=== PATIENT | male | born 1960 | race Caucasian/White ===

== ENCOUNTER 2022-03-30 05:31 | Observation (INO) ==
--- NOTE | 2022-03-27 09:38 | Anesthesiology Consultation ---
Date of Service March 27, 2022 Assessment & Plan (1) Encounter for pre-operative examination: - COVID screening: Per python consultant on 03/27/2022: Travel screen negative, no known COVID-19 positive contacts or current COVID-19 related symptoms in past 2 weeks. To surgeon's discretion if preop COVID testing is needed. Chart Review Chart Review: Acceptable Risk for Surgery and Patient NOT seen in Pre Admission Testing History Surgery Operation Date: 03/30/22 07:30 Proposed Procedures p Robotic Laparoscopic Assisted Radical Prostatectomy, Possible Open, Possible Pelvic Lymph Node Dissection, Possible Suprapubic Tube Placement - Jose Guzmán, DO Height/Weight Height: 6 ft Weight: 102.058 kg Allergies Allergy/AdvReac Type Severity Reaction Status Date / Time No Known Allergies Allergy Verified 03/27/22 09:03 Medications Home Medications Medication Instructions Recorded Confirmed Last Taken bupropion HCl 150 mg 24 hr tablet, 150 mg PO QAM 03/27/22 03/27/22 Unknown extended release (Wellbutrin XL) losartan 100 mg tablet (Cozaar) 100 mg PO HS 03/27/22 03/27/22 Unknown pregabalin 200 mg capsule (Lyrica) 200 mg PO BID 03/27/22 03/27/22 Unknown sertraline 100 mg tablet 100 mg PO HS 03/27/22 03/27/22 Unknown Past Medical History Medical History (Updated 03/27/22 @ 09:35 by Trudy Chester PA-C) Anxiety COPD (chronic obstructive pulmonary disease) Depression Hypertension Prostate cancer Past Surgical History Surgical History (Updated 03/27/22 @ 09:10 by Lesley Rodarte) History of back surgery x2 Hx of appendectomy Hx of arthroscopic knee surgery rt. Hx of cervical spine surgery w/plate and screws; ROM "is pretty good" Hx of colonoscopy Hx of knee surgery rt. "twisted around and had to be repaired" Hx of tooth extraction Social History Smoking Status: Current every day smoker tobacco type: cigars Smoking cigarettes per day: 1-2 cigars per day Do You Dip or Chew Tobacco: Yes (1 can/3 days) Hx Alcohol Use: No Hx Substance Use: No substance use type: does not use Lab Results Anesthesia Preop Results Results Anesthesia Widget: WBC 9.61 K/ul (4.8-10.8) 03/07/22 Hgb 15.2 g/dl (14.0-18.0) 03/07/22 Hct 45.5 % (40.1-51.0) 03/07/22 Plt 309 K/uL (130-400) 03/07/22 Na 139 mmol/L (136-145) 03/07/22 K 4.3 mmol/L (3.5-5.1) 03/07/22 Cl 105 mmol/L (98-107) 03/07/22 CO2 28 mmol/L (21-32) 03/07/22 BUN 14 mg/dl (6-23) 03/07/22 Creat 0.77 mg/dl (0.6-1.4) 03/07/22 Glucose Level 107 mg/dl (70-99(Fasting)) H 03/07/22 Testing Electrocardiogram Date: 06/16/21 Sinus bradycardia, rate 59 bpm Chest X-Ray Date: 03/07/22 1. Elevated right hemidiaphragm with right basilar linear densities suggesting subsegmental atelectasis or scarring. 2. Otherwise, no acute process within the chest. Other Testing Bone scan 02/15/22 There is no scintigraphic evidence of bony metastatic disease CT abdomen and pelvis 01/12/22 No evidence of metastatic disease
[2022-03-30] MEDS ORDERED: LR 15ML/HR IV SCH (06:00)
[2022-03-30] MEDS ORDERED: LACTATED RINGER'S 1,000 ML IV SCH (06:00)
[2022-03-30] MEDS ORDERED: ceFAZolin 2000MG 2,000 MG/15 ML SYR IV SCH (06:00)
[2022-03-30] MEDS ORDERED: HEPARIN SOD 5,000 UNIT/0.5 ML VIAL SQ SCH (06:00)
[2022-03-30] MEDS ORDERED: DEXAMETHASONE SOD INJ 4 MG/ML VIAL ONE ×2 (06:58→07:55)
[2022-03-30] MEDS ORDERED: ROCURONIUM BROMIDE 10 MG/ML 5 ML VIAL IV ONE (06:58)
[2022-03-30] MEDS ORDERED: ONDANSETRON INJ 2 MG/ML 2 ML VIAL ONE (06:58)
[2022-03-30] MEDS ORDERED: PROPOFOL IV EMULSION 10 MG/ML 20 ML VIAL IV ONE (06:58)
[2022-03-30] MEDS ORDERED: LIDOCAINE 2% 2 ML VIAL/AMP(20MG/ML) INFIL ONE (06:58)
[2022-03-30] MEDS ORDERED: fentaNYL citrate 100 MCG/2 ML VIAL ONE ×2 (06:59→09:32)
[2022-03-30] MEDS ORDERED: MIDAZOLAM HCL 1 MG/ML 2ML VIAL ONE (06:59)
[2022-03-30] MEDS ORDERED: SUGAMMADEX SODIUM 200 MG/2 ML VIAL IV ONE (07:00)
--- NOTE | 2022-03-30 07:07 | History & Physical Bridge Note ---
Date of Service March 30, 2022 History & Physical Bridge Note I have examined the patient, reviewed the History & Physical and in the interval since the performance of the History & Physical I have noted the following changes of clinical significance: no changes noted
[2022-03-30] MEDS ORDERED: BUPIVACAINE 0.5 % 5 MG/1 ML MPF 30ML VIAL ONE (07:30)
[2022-03-30] MEDS ORDERED: ATROPINE SULFATE 0.1 MG/ML 10ML SYR IV PRN (07:34)
[2022-03-30] MEDS ORDERED: ONDANSETRON INJ 2 MG/ML 2 ML VIAL IV PRN ×2 (07:34→13:13)
[2022-03-30] MEDS ORDERED: NALOXONE HCL 0.4 MG/1 ML VIAL/CARP IV PRN (07:34)
[2022-03-30] MEDS ORDERED: LABETALOL HCL IV 5 MG/ML 20ML IV PRN (07:34)
[2022-03-30] MEDS ORDERED: ePHEDrine sulfate 50 MG/ML AMP IV PRN (07:34)
[2022-03-30] MEDS ORDERED: FLUMAZENIL 0.1 MG/1 ML 10 ML VIAL IV PRN (07:34)
[2022-03-30] MEDS ORDERED: PROMETHAZINE HCL 12.5 MG in SODIUM CHLORIDE 0.9% 50 ML IV PRN (07:34)
[2022-03-30] MEDS ORDERED: GLYCOPYRROLATE 0.2 MG/ML VIAL ONE (08:09)
[2022-03-30] MEDS ORDERED: FLOSEAL HEMOSTATIC MATRIX 10ML TOP ONE (09:39)
[2022-03-30] MEDS ORDERED: SURGICEL ABSORB HEMOSTAT 2IN X 14IN TOP ONE ×2 (09:47→10:21)
--- NOTE | 2022-03-30 11:02 | Operative Report ---
PG Post Operative Report Pre & Post Diagnosis Operation Date: 03/30/22 07:30 Pre-Op Diagnosis: Prostate Cancer Post-Op Diagnosis: Prostate Cancer I identified the patient and participated in the time-out.: Yes Procedure Operation Date: 03/30/22 07:30 Actual Procedures p Robotic Laparoscopic Assisted Radical Retropubic Prostatectomy, Pelvic Lymph Node Dissection, Reduction of left inguinal hernia, extensive lysis of adhesions. - Jose Guzmán, Surgeon Jose Guzmán, II, DO Performance Architect Elver VILLA Estimated Blood Loss 50 Findings Consistent with Post-Op Diagnosis Numerous adhesions of the colon and small bowel in the pelvis. Moderate fat containing Inguinal hernia on left with adhesion of sigmoid colon to area over the inguinal canal. Hernia was reduced and adhesions freed on left. Insufflation of the scrotum likely from inguinal hernia. Specimens Prostate and Seminal Vesicle Left Pelvic Lymph Nodes Right Pelvic Lymph Nodes. Drains 18 Silicon Feliz catheter. Anesthesia Type General Complications none Disposition Disposition: Recovery Room Indications Patient with Prostate Cancer. Risk and benefits were discussed at length. Patient elected to undergo robotic assisted laparoscopic Radical Prostatectomy. Description of Procedure The patient was brought to the operative suite and placed under general endotracheal intubation anesthesia in the supine position. The patient was transferred to the dorsal lithotomy position. At this point, the patient prepped and draped in the usual sterile fashion and a timeout was completed. Preoperative antibiotics of Ancef 2 grams had been given. SHIRA's and SCD's were placed on the patient's lower extremities. A catheter was placed using sterile technique. With the time out completed the patient was placed into Trendelenburg and the skin at the umbilicus was anesthetized. A small incision was made superior to the umbilicus. A Varess Needle was placed and confirmed to be in the abdominal cavity. Water drop test passed. The Abdominal cavity was insufflated to 15 mmHG. The camera port was then placed. A laparoscopic camera was placed into the port and the abdominal cavity inspected. No concerning features were noted. At this point, the skin was marked for port placement and 8mm working ports were placed. The skin was anesthetized down to fascia and an approx 1cm incision was made to place the 3 x 8mm ports. A 12mm and 5 mm virtual customer assistant ports were also placed in similar fashion under direct visualization. The patient was transferred into steep Trendelenburg position and the legs lowered. The robot was positioned and docked. The camera was placed and all trocars were positioned under direct visualization. Elver VILLA was integral in port placement, camera utilization, and docking procedure. She remained in sterile attire and then proceeded to assist the remainder of the case. At this point, I transitioned to the robotic console. At this point, the sigmoid colon was mobilized superiorly and the pelvis assessed. Adhesions were freed to allow mobilization. Extensive lysis of adhesions were necessary due to adhesions of the bowel and colon to the pelvic sidewalls and inguinal region. ON the left the patient had a moderate inguinal hernia with large fat herniation. The tissue was also attached/adhered to the sigmoid colon. This was able to be reduced and the base attachment to the inguinal hernia sac were lysed. The Inguinal canal was then packed with Surgicel hemostatic agent. Approx greater than 25 minutes required for lysis of adhesions and freing the the bowel and colon to retract them out of the pelvis. The peritoneum in the midline was opened between rectum and bladder and the vas deferens and seminal vesicles exposed. These were dissected with blunt technique. The vas was clipped and cut and mobilized. Cautery was used to assist dissection avoiding the tissue posteriorly near the rectum. The tissues lateral to the seminal vesicles were clipped with a hemolock and all bleeding controlled. This was taken as inferior as possible from this position. The medial umbilical ligaments were then identified and the peritoneum directly lateral on the right followed by the left was opened. The tissues were bluntly dissected to free the bladder's lateral attachments. This was taken down to the pubic bone and exposed the endopelvic fascia bilaterally. The medial ligaments were cut and the bladder dropped. The tissues was dissected anterior to the prostate. The endopelvic fascia on each side was then opened and the lateral edges of the prostate dissected. The Dorsal venous complex of the prostate was dissected and assessed. A 2-0 PDS suture was used to ligate the vessels. A suspension stitch was used and clipped. Electrocautery was used to cut the anterior attachments, the puboprostatic ligaments, and venous tissues. The feliz was manipulated to better visual the bladder neck and dissection was taken using electrocautery. The bladder neck was opened and dissected from the prostate. The UO were identifed and dissection taken in a direction to avoid each side. The vas stump and seminal vesicles were exposed and used to assist in traction to dissect. The prostatic pedicles were better exposed. The posterior prostate was dissected. An attempt was made to limit cautery and utilize cold dissection of the lateral posterior prostate to attempt preservation of the neurovascular bundle bilaterally. Hemolock clips were utilized to clip the prostatic pedicle bilaterally. The dissection was taken to the apex of the prostate. The anterior prostate was released and the urethra exposed. Cold cutting was used to open the anterior portion and expose the catheter. This was removed and the urethra incised. The prostate was further freed and grasped and removed from the field. The entire dissection bed was inspected. Hemostatic agent was placed in the region. No areas of injury or bleeding was noted. Care was taken to examine the perirectal tissues. A probe was placed and no injuries or other issues were observed. A 2-0 Vicryl suture was then used to approximate the posterior portion of the pelvic floor and the base of the bladder. The bladder neck and urethra were then approximated with a running barbed suture starting at the 5 o'clock position and moving to the 12 o'clock on each side. This was tied at the anterior portion. A leak test was completed without any evidence of issues. The right and left pelvic lymph tissue was identified in relation to the iliac vessels. Distal dissection was taken to the Node of [place]. Inferiorly the obtorator vessels and nerve were identified. Lymphatic tissue within the surround fat tissue was dissected. This packet of tissues were sent for pathologic analysis and lymph node assessment. This was done for each separate side. Hemostatic agent was placed on the exposed vessels. Due to the inguinal hernias, the patient was found to have air within the scrotum. Prior to closing the fascia, this was reduced. The entire dissection space was inspected one final time. No bleeding or injuries or areas of concern were noted. No tumor or other concerning features were noted. At this point, the robot was undocked and moved away from the patient. The p atient was taken out of Trendelenberg. The port sites were all assessed laparoscopically. The endoscopic bag was moved into the midline port. The 12mm port site was closed with a 1-0 Vicryl Suture. The other ports were assessed and no issues observed. The umbilical incision was opened further exposing fascia which was then opened in order to removed the prostate in the bag. The prostate was removed. A running 1-0 PDS suture was used to close fascia. The skin at each site was closed with baldemar. The area was cleaned and bandages placed on each incision. A scrotal support was placed due to the hernia and swelling. The patient was cleaned and bandaged, aroused from anesthesia, and transferred to the pacu in stable condition having tolerated the procedure well with no complications. I was present and participated in all aspects of the procedure. Elver VILLA was critical in the portions as mentioned above. Will plan to observe postoperatively and monitor. Feliz to be remain in place until followup. I attest to the content of the Intraoperative Record and any orders documented therein. Any exceptions are noted below.
[2022-03-30] MEDS: fentaNYL citrate 100 MCG/2 ML VIAL IV PRN ×4 (11:21→11:36)
[2022-03-30 11:33] LABS: Basophils # (auto) 0.09 K/uL (0-0.2); Basophils % (auto) 0.4 %; Eosinophils # (auto) 0.15 K/uL (0-0.50); Eosinophils % (auto) 0.7 %; Hematocrit (blood only) 38.6 % (42.0-52.0); Hemoglobin 12.8 g/dl (14.0-18.0); Immature Granulocytes # (auto) 0.16 K/uL (0.01-0.20); Immature Granulocytes % (auto) 0.7 %; Lymphocytes # (auto) 2.63 K/uL (1.2-3.4); Lymphocytes % (auto) 11.5 %; Mean Corpuscular Hemoglobin 28.4 pg (25.0-34.0); Mean Corpuscular Hgb Conc 33.2 g/dL (32.0-36.0); Mean Corpuscular Volume 85.8 fL (80.0-100.0); Mean Platelet Volume 9.7 fL (9.4-12.4); Monocytes # (auto) 0.69 K/uL (0.11-0.59); Neutrophils # (auto) 19.21 K/uL (1.40-6.50); Neutrophils % (auto) 83.7 %; Platelet Count 365 K/uL (130-400); RDW Coefficient of Variation 15.5 % (11.5-14.5); RDW Standard Deviation 48.7 fL (36.4-46.3); White Blood Count 22.93 K/ul (4.8-10.8)
[2022-03-30 11:50] LABS: BUN Creatinine Ratio 18.3 (10-20); Calcium 8.9 mg/dl (8.5-10.1); Creatinine Clr Calc Pharmacy 118.4 ml/min; Est GFR (African American) 111.4 ml/min; Est GFR (Non-African American) 96.1 ml/min; Potassium 4.3 mmol/L (3.5-5.1)
[2022-03-30] MEDS: HYDROmorphone INJ 1 MG/ML SYRINGE IV PRN ×4 (12:00→12:15)
[2022-03-30] MEDS ORDERED: HYDROmorphone INJ 0.5 MG/0.5 ML SYR ONE ×2 (12:00→12:12)
--- NOTE | 2022-03-30 12:36 | Anesthesiology Progress Note ---
Date of Service March 30, 2022 Anesthesia Post Procedure Vital Signs Vital Signs: Temp Pulse Resp BP Pulse Ox O2 Del Method O2 Flow Rate 03/30/22 12:15 66 16 166/62 H 94 Nasal Cannula 4 03/30/22 12:00 66 17 158/63 H 95 Nasal Cannula 4 03/30/22 11:50 36.8 C 69 17 145/82 H 96 Nasal Cannula 4 03/30/22 11:40 69 17 146/72 H 96 Nasal Cannula 4 03/30/22 11:30 70 18 158/85 H 96 Oxymask 6 03/30/22 11:20 77 20 175/83 H 97 Oxymask 6 03/30/22 11:10 36.6 C 85 20 163/92 H 96 Oxymask 6 03/30/22 06:10 37.1 C 56 L 20 136/85 95 Room Air Pain Intensity Bilateral Back: Pain Intensity: 5 Transfer of Care Handoff Completed per policy Notes Mental Status: alert / awake / arousable Patient Amnestic to Procedure: Yes Nausea / Vomiting: adequately controlled Pain: adequately controlled Airway Patency, RR, SpO2: stable & adequate BP & HR: stable & adequate Hydration State: stable & adequate Anesthetic Complications: no major complications apparent
[2022-03-30] MEDS ORDERED: oxyCODONE HCL IR 5 MG TAB (IMMEDIATE RELEASE) PO PRN (13:13)
[2022-03-30] MEDS ORDERED: MoRPHine SULFATE 2 MG/ML CARP IV PRN (13:13)
[2022-03-30] MEDS: oxyCODONE HCL IR 5 MG TAB (IMMEDIATE RELEASE) PO PRN ×3 (13:36→22:37)
[2022-03-30] MEDS: ACETAMINOPHEN 325 MG TAB PO SCH ×2 (13:38→18:36)
[2022-03-30] MEDS: LACTATED RINGER'S 1,000 ML IV SCH (14:54)
[2022-03-30] MEDS: ceFAZolin 2000MG 2,000 MG/15 ML SYR IV SCH ×2 (14:54→22:50)
[2022-03-30] MEDS ORDERED: SIMETHICONE 80 MG CHEW PO ONE (15:15)
[2022-03-30] MEDS: MoRPHine SULFATE 4 MG/ML 1 ML CARP\\VIAL IV PRN ×2 (16:02→19:43)
[2022-03-30] MEDS: ERYTHROMYCIN OP OINT 5 MG/GM 3.5 GM TUBE OP SCH ×2 (16:13→20:59)
[2022-03-30] MEDS: PREGABALIN 100 MG CAP PO SCH (20:59)
[2022-03-30] MEDS: DOCUSATE SODIUM 100 MG CAP PO SCH (20:59)
[2022-03-30] MEDS ORDERED: LOSARTAN POTASSIUM 50 MG TAB PO SCH (21:00)
[2022-03-30] MEDS ORDERED: SERTRALINE HCL 100 MG TABLET PO SCH (21:00)
[2022-03-30] MEDS: HEPARIN SOD 5,000 UNIT/0.5 ML VIAL SQ SCH (21:00)
[2022-03-30] MEDS ORDERED: traZODone HCL 100 MG TAB PO SCH (22:45)
[2022-03-31] MEDS: MoRPHine SULFATE 4 MG/ML 1 ML CARP\\VIAL IV PRN ×3 (00:31→09:53)
[2022-03-31] MEDS: LACTATED RINGER'S 1,000 ML IV SCH (00:33)
[2022-03-31] MEDS: ACETAMINOPHEN 325 MG TAB PO SCH ×2 (00:34→07:33)
[2022-03-31] MEDS: oxyCODONE HCL IR 5 MG TAB (IMMEDIATE RELEASE) PO PRN ×3 (02:58→11:34)
[2022-03-31 07:45] LABS: Basophils # (auto) 0.03 K/uL (0-0.2); Basophils % (auto) 0.2 %; Eosinophils # (auto) 0.06 K/uL (0-0.50); Eosinophils % (auto) 0.4 %; Hematocrit (blood only) 31.5 % (42.0-52.0); Hemoglobin 10.3 g/dl (14.0-18.0); Immature Granulocytes # (auto) 0.06 K/uL (0.01-0.20); Immature Granulocytes % (auto) 0.4 %; Lymphocytes # (auto) 2.29 K/uL (1.2-3.4); Lymphocytes % (auto) 14.4 %; Mean Corpuscular Hemoglobin 28.2 pg (25.0-34.0); Mean Corpuscular Hgb Conc 32.7 g/dL (32.0-36.0); Mean Corpuscular Volume 86.3 fL (80.0-100.0); Mean Platelet Volume 10.1 fL (9.4-12.4); Monocytes # (auto) 2.21 K/uL (0.11-0.59); Monocytes % (auto) 13.9 %; Neutrophils # (auto) 11.24 K/uL (1.40-6.50); Neutrophils % (auto) 70.7 %; Platelet Count 294 K/uL (130-400); RDW Coefficient of Variation 15.4 % (11.5-14.5); RDW Standard Deviation 48.9 fL (36.4-46.3); Red Blood Count 3.65 M/uL (4.70-6.10); White Blood Count 15.89 K/ul (4.8-10.8)
[2022-03-31 08:06] LABS: BUN Creatinine Ratio 18.2 (10-20); Calcium 8.5 mg/dl (8.5-10.1); Creatinine Clr Calc Pharmacy 147.1 ml/min; Est GFR (African American) 121.8 ml/min; Est GFR (Non-African American) 105.1 ml/min; Potassium 3.6 mmol/L (3.5-5.1)
[2022-03-31] MEDS: DOCUSATE SODIUM 100 MG CAP PO SCH (08:57)
[2022-03-31] MEDS: PREGABALIN 100 MG CAP PO SCH (08:57)
[2022-03-31] MEDS: HEPARIN SOD 5,000 UNIT/0.5 ML VIAL SQ SCH (08:57)
[2022-03-31] MEDS: ERYTHROMYCIN OP OINT 5 MG/GM 3.5 GM TUBE OP SCH (08:58)
[2022-03-31] MEDS ORDERED: buPROPion XL 150 MG TABCR PO SCH (09:00)
--- NOTE | 2022-03-31 09:35 | Urology Progress Note ---
Date of Service March 31, 2022 Assessment & Plan (1) Prostate cancer: Plan: 61 yo M POD #1 s/p Robotic Laparoscopic-Assisted Radical Retropubic Prostatectomy with Dr. Guzmán. - Doing well, progressing as expected - Afebrile, post op lab work reviewed and as expected - Pain currently managed with PO and IV analgesics, discussed transition to PO today - Tolerating clear liquid diet - advance as tolerated today, d/c IV fluids - Encouraged OOB ambulation - Incisions appropriate - Young catheter intact, patent and draining clear yellow urine - Maintain Young catheter upon discharge - Expected clinical course reviewed, all questions answered - Patient anxious for discharge today - Anticipate discharge to home later today if he continues to progress as expected - Will arrange outpatient follow-ups Patient reassessed at 1040 He is feeling well and anxious for discharge. Patient tolerated regular diet. Orders placed for discharge to home with Young catheter. All questions answered. Admission and Anticipated Discharge Date Admission Date: March 30, 2022 Subjective Patient seen and examined at bedside this morning. He is awake, alert and sitting up in bed. No acute issues overnight. He reported left eye discomfort yesterday following surgery. He was started on artificial tears and erythromycin ophthalmic ointment per anesthesia. He reports left eye is much better today. He reports some discomfort near incisions and suprapubic area, well managed with p.o. and IV medication. Young patent and draining clear yellow urine. Tolerating clear liquid diet. No nausea or vomiting. He has been out of bed. No fever or chills. Review of Systems Constitutional: as per Subjective / HPI Gastrointestinal: as per Subjective / HPI Genitourinary: + as per Subjective / HPI Physical Exam Constitutional: well developed and well nourished; no acute distress Respiratory: normal respiratory effort; no respiratory distress and no labored breathing Cardiovascular: Extremities: no pedal edema Gastrointestinal (Abdomen): Inspection/Auscultation: abdomen normal to inspection; abdomen not distended Percussion/Palpation: + abdomen tender (mi ldly tender to palpation near incisions) and abdomen soft; no guarding Musculoskeletal: Head/Neck/Chest: normocephalic and head atraumatic Skin: Surgical dressings C/D/I. Dressing was removed. Incisions appear healthy and well approximated with baldemar. Incision above umbilicus with mild ecchymosis. No erythema or drainage. Neurologic: moves all extremities and awake Psychiatric: Orientation: alert and oriented x 3 Genitourinary: Young intact and patent, draining clear yellow urine Results & Data ([facility]) Vital Signs (Past 12 Hours) Vital Signs Temp Pulse Resp BP Pulse Ox O2 Del Method 03/31/22 07:48 36.9 C 56 L 16 123/70 93 Room Air 03/30/22 23:00 36.8 C 65 16 137/75 96 Room Air PG Care Time/CCT Total # of Minutes Spent Total Time Spent with Patient: Total time spent is greater than 50% in coordination of care (as documented) at patient's floor/unit and/or counseling patient: Coding Level of Care Code 84940 SUB INP/OBS CARE 2/35MIN Diagnoses Prostate cancer C61
--- NOTE | 2022-03-31 11:31 | Discharge Summary ---
Date of Service March 31, 2022 Admission HPI Per Admitting Provider Patient with prostate cancer here for Robotic Laparoscopic Assisted Radical Retropubic Prostatectomy, Pelvic Lymph Node Dissection. Principal Diagnosis General: Alert in no acute distress. HEENT: Inspection normal Psychologic: Normal affect. Respiratory: Nonlabored. No use of accessory muscles. Skin: [place] and Dry. No rashes or visible lesions. Abdomen: Soft, nontender Discharge Exam Constitutional well developed and well nourished; no acute distress Respiratory normal respiratory effort; no respiratory distress and no labored breathing Cardiovascular Extremities: no pedal edema Gastrointestinal (Abdomen) Inspection/Auscultation: abdomen normal to inspection; abdomen not distended Percussion/Palpation: + abdomen tender (mildly tender to palpation near incisions) and abdomen soft; no guarding Musculoskeletal Head/Neck/Chest: normocephalic and head atraumatic Neurologic moves all extremities and awake Psychiatric Orientation: alert and oriented x 3 Discharge Data Allergies Allergy/AdvReac Type Severity Reaction Status Date / Time No Known Allergies Allergy Verified 03/30/22 06:06 Procedures Performed Operation Date: 03/30/22 07:30 Actual Procedures p Robotic Laparoscopic Assisted Radical Retropubic Prostatectomy, Pelvic Lymph Node Dissection(Not Applicable) - Jose Guzmán, DO Hospital Course (1) Prostate cancer: 61 yo M POD #1 s/p Robotic Laparoscopic-Assisted Radical Retropubic Pro statectomy with Dr. Guzmán. - Doing well, progressing as expected - Afebrile, post op lab work reviewed and as expected - Pain currently managed with PO and IV analgesics, discussed transition to PO today - Tolerating clear liquid diet - advance as tolerated today, d/c IV fluids - Encouraged OOB ambulation - Incisions appropriate - Young catheter intact, patent and draining clear yellow urine - Maintain Young catheter upon discharge - Expected clinical course reviewed, all questions answered - Patient anxious for discharge today - Anticipate discharge to home later today if he continues to progress as expected - Will arrange outpatient follow-ups Patient reassessed at 1040 He is feeling well and anxious for discharge. Patient tolerated regular diet. Orders placed for discharge to home with Young catheter. All questions answered. Total Time Total Time Spent Total Time Spent (In Minutes): 29 Discharge Plan Discharge Items Patient Disposition: Home - Self-Care Reason For Visit: Prostate Cancer Discharge Diagnosis: Prostate cancer Activity: Per Instructions section Lifting: No more than 25 pounds Bathing Comment: Okay to shower after discharge, no tub bath or soaking Sexual Activity: Wait until after follow-up appointment Exercise/Sports: Wait until after follow-up appointment Driving/Machine Use: No driving while taking prescription pain medication Non-emergency contact: Surgeon and Urologist Call non-emergency contact if: your pain is not controlled, your pain is worsening, your temperature is above 101, your wound has increased redness, your wound has increased drainage and your wound pain has increased Follow-up/Referrals: Charlie Olivier MD [Primary Care Provider] - Diet: Regular Addtl Attending Provider Instructions: Please take all medications as prescribed and keep all follow-ups as scheduled. Please call our office at [phone] with any questions, concerns or need to reschedule appointments for any reason. We are happy to assist you We have sent an antibiotic to your pharmacy of choice. Please begin antibiotic as prescribed the day BEFORE your scheduled voiding trial at [facility]. Please continue antibiotic every 12 hours through the day AFTER your voiding trial. Activity: We recommend having someone with you for the first few days after surgery to help care for you. For the first 2 weeks after surgery, we would like you to get up and walk around your house. However, we recommend limit physical activity that would increase your heart rate. This will allow your body to rest and heal. Take naps if you feel tired. Don't lift anything heavier than 10 pounds, mow the law or ride a bicycle until your follow-up appointment. Please avoid long car rides. Home Care: Unless directed otherwise, drink 6 to 8 glasses of water a day (enough to keep your urine light colored). This will also help keep a healthy flow of urine. We recommend using a stool softener for the first two weeks to avoid constipation. Young Catheter or Suprapubic Catheter care: Keep the catheter well secured with either a leg back or leg strap with large bag. Empty your bag when it's about half full. You may notice some blood in the bag. This is normal after surgery and while the catheter is in place. Use mild soap (such as Dove or Dial) and water to wash the catheter and the head of your penis daily, or more frequently if needed. Return to your normal diet, we encourage good protein intake to promote healing. You may shower as normal. Please avoid tub baths or soaking until catheter re moved and incisions well healed. Wearing sweat pants while you have the catheter is recommended, they will be more comfortable. Follow-up Your follow up appointments for having your catheter removed, and follow up with your physician should already be scheduled. If you have any questions regarding this, please contact our office. Your final pathology report will be discussed at your physician follow-up appointment. Call [facility] at [phone] right away if you have any of the following: Chest pain or trouble breathing (call 911 or go to the hospital) Fever of 101F or higher, uncontrolled vomiting Heavy bleeding, clots, or bright red blood from the catheter Catheter that falls out or stops draining Foul-smelling discharge from your catheter Redness, swelling, warmth, or increased pain at your incision site Drainage, pus, or bleeding from your incision Pending Studies at Discharge: Yes (pathology) Stand-Alone Forms: My [facility], Smoking Cessation Medications and DC Order Prescriptions: New ciprofloxacin HCl 500 mg tablet 500 mg PO BID Qty: 6 0RF Rx Instructions: Start 1 day prior to catheter removal docusate sodium [Colace] 100 mg capsule 100 mg PO BID Qty: 60 0RF Rx Instructions: Take twice daily for 2 weeks, then as needed for constipation. oxycodone-acetaminophen [Percocet] 7.5-325 mg tablet 1 tab PO Q8H PRN (Reason: pain) Qty: 14 0RF Rx Instructions: Postoperative Continued sertraline 100 mg Tablet 100 mg PO HS losartan [Cozaar] 100 mg Tablet 100 mg PO HS bupropion HCl [Wellbutrin XL] 150 mg Tablet Extended Release 24 Hr 150 mg PO QAM pregabalin [Lyrica] 200 mg Capsule 200 mg PO BID Discharge Orders: Discharge Order (Routine); Ordered 03/31/22 Ordered By: Inez Raya Admission Data Admit Date/Time: 03/30/22 10:58 Attending Provider: Jose Guzmán Admit Provider: Jose Guzmán Primary Care Provider: Charlie Olivier Other Interventions: Discharge Summary Assessment (RN) Last Done: 03/31/22 11:20 Coding Level of Care Code HOSP INP/OBS DISCH 30 MIN/LESS Diagnoses Prostate cancer C61 Time Spent (min) 29
== END 2022-03-31 12:19 | disposition home or self-care (01) ==
LOC: ASU 05:31 → PACUINP 10:58 → INTOOBSV 10:58 → 3N 13:08